=== PATIENT | female | born 1995 | race Caucasian/White ===

== ENCOUNTER → 2016-12-03 | Outpatient (CLI) | payer OTHER ==
[2016-12-03 13:42] LABS: BLOOD UREA NITROGEN 13 mg/dl (7-18); BUN/CREATININE RATIO 13.7 (10-20); CARBON DIOXIDE 27 mmol/L (21-32); CHLORIDE 104 mmol/L (98-107); CREATININE 0.91 mg/dl (0.60-1.20); GLUCOSE 77 mg/dl (70-99); POTASSIUM 3.8 mmol/L (3.5-5.1); SODIUM 141 mmol/L (136-145)
[2016-12-03 13:46] LABS: CALCIUM 9.4 mg/dl (8.5-10.1)
== END | disposition home or self-care (01) ==
LOC: C.LABBC 12:00
PROVIDERS: ATTEND Ophthalmology
DX: H53.432 Sector or arcuate defects, left eye (principal); Q14.0 Congenital malformation of vitreous humor

== ENCOUNTER → 2017-01-09 | Outpatient (CLI) | payer OTHER ==
[~2017-01-09] MED LIST: GADAVIST IV PRN
--- NOTE | 2017-01-09 10:24 | DIAGNOSTIC IMAGING REPORT ---
ORBIT COMBO CLINICAL HISTORY: H53.432 visual defect. Right-sided blindness. Stat left visual loss. COMPARISON STUDY: No previous studies for comparison. FINDINGS: Imaging was performed before and after the administration of 5.5 cc of intravenous Gadavist. There is partial opacification the sphenoid sinus. There is a small deformed right globe. No retroconal masses are visualized. No abnormalities of the optic chiasm are visualized. The pituitary and infundibulum appear normal as visualized. IMPRESSION: 1. Inflammatory changes within the sphenoid sinus 2. Small deformed right globe 3. No retroconal mass is identified Electronically signed by: Diogenes Muñiz M.D. 01/09/2017 10:22 AM Dictated Date/Time: 01/09/2017 10:15 AM
--- NOTE | 2017-01-09 10:35 | DIAGNOSTIC IMAGING REPORT ---
MRI OF THE BRAIN COMBO CLINICAL HISTORY: Left-sided vision loss. COMPARISON STUDY: No priors. TECHNIQUE: MRI of the brain was performed utilizing various T1 and T2-weighted sequences in the axial, sagittal, and coronal planes. Contrast-enhanced sequences were acquired following the administration of 5.5 cc of Gadavist. FINDINGS: Brain parenchyma: There are scattered punctate foci of T2 signal abnormality seen throughout the subcortical and periventricular white matter. The brain parenchyma is otherwise normal in appearance. There is no hemorrhage or mass effect. There is no restricted diffusion to suggest acute ischemia. No enhancing mass lesion is identified on the postcontrast images. Gutierrez-white matter differentiation is preserved. No extra-axial fluid collection is seen. The cerebellar tonsils are normal in configuration. Ventricles, sulci, and cisterns: Normal in configuration. Pituitary and sella: Unremarkable. Intracranial vasculature: Normal flow voids are maintained at the skull base. Orbits: The bony orbits are grossly intact. There is atrophy and deformity of the right globe that is likely chronic. The left orbital contents are normal as imaged. See report of MRI performed concurrently for detailed findings. Sinuses and mastoids: There is moderate mucosal thickening in the right sphenoid sinus. Remaining paranasal sinuses and the mastoid air cells are clear. Calvarium: Unremarkable. Cervical cord: Partially visualized cervical spinal cord is normal in morphology and signal intensity. IMPRESSION: 1. No acute intracranial abnormality. 2. There is atrophy and deformity of the right globe that is likely chronic. 3. There are scattered punctate foci of T2 signal abnormality noted throughout the subcortical and periventricular white matter. This is nonspecific, and could the seen in the setting of chronic migraine, could represent minimal microangiopathic change, the sequelae of a remote insult, less likely a demyelinating process such as multiple sclerosis versus an infectious process such Lyme disease. Clinical correlation will be essential. Electronically signed by: Yohannes Barba M.D. 01/09/2017 10:34 AM Dictated Date/Time: 01/09/2017 10:24 AM
== END | disposition home or self-care (01) ==
LOC: C.MRI 08:35
PROVIDERS: ATTEND Ophthalmology
DX: H53.432 Sector or arcuate defects, left eye (principal); Q14.0 Congenital malformation of vitreous humor; H44.521 Atrophy of globe, right eye; R90.82 White matter disease, unspecified; J01.30 Acute sphenoidal sinusitis, unspecified

== ENCOUNTER → 2017-05-16 | Outpatient (CLI) | payer OTHER ==
[2017-05-16 12:59] LABS: HEPATITIS B AB NEG
[2017-05-18 12:20] LABS: HBSAG REACTIVE (NON-REACTIVE)
[2017-05-18 17:37] LABS: HEP B QUANT 142 IU/mL (<20); HEP B QUANT LOG IU/ML 2.15 Log IU/mL (<1.30); HEPATITIS BE ANTIBODY TC 556 Reactive; HEPATITIS BE ANTIGEN TC 555 Nonreactive
== END | disposition home or self-care (01) ==
LOC: C.LAB1850 10:59
PROVIDERS: ATTEND Physician Assistant
DX: B18.1 Chronic viral hepatitis B without delta-agent (principal)

== ENCOUNTER 2024-07-16 14:58 | Inpatient (IN) ==
[2024-07-16] MEDS ORDERED: ACETAMINOPHEN 325 MG TAB PO PRN (15:19)
[2024-07-16] MEDS ORDERED: ACETAMINOPHEN 500 MG TAB PO PRN (15:51)
[2024-07-16] MEDS ORDERED: LIDOCAINE 1% LOCAL 20 ML VIAL INFIL PRN (15:51)
[2024-07-16 16:11] LABS: Creatinine Urine Random 100.6 mg/dl; Protein Creatinine Ratio Urine 0.2 (0-0.2); Total Protein Urine Random 16.1 mg/dl (0-11.9)
[2024-07-16] MEDS: LABETALOL HCL IV 5 MG/ML 20ML IV STA ×2 (16:14→22:58)
[2024-07-16] MEDS: MAGNESIUM SULFATE / WTR 40 GM/1,000 ML BAG IV SCH (16:26)
[2024-07-16 16:30] LABS: Hematocrit (blood only) 35.7 % (37.0-47.0); Hemoglobin 11.7 g/dl (12.0-16.0); Mean Corpuscular Hemoglobin 26.4 pg (25.0-34.0); Mean Corpuscular Hgb Conc 32.8 g/dL (32.0-36.0); Mean Corpuscular Volume 80.4 fL (80.0-100.0); Mean Platelet Volume 10.6 fL (9.4-12.4); Platelet Count 248 K/uL (130-400); RDW Coefficient of Variation 13.3 % (11.5-14.5); RDW Standard Deviation 38.7 fL (36.4-46.3); Red Blood Count 4.44 M/uL (4.20-5.40); White Blood Count 7.39 K/ul (4.8-10.8)
[2024-07-16 16:43] LABS: Creatinine Clr Calc Pharmacy 132.6 ml/min
[2024-07-16] MEDS: LIDOCAINE 2% JELLY 5 ML TUBE EXT ONE (16:48)
[2024-07-16] MEDS: MAG SULFATE 4GM BOLUS FROM BAG IV ONE (16:58)
[2024-07-16] MEDS ORDERED: Nursing to Pharmacy Communication SCH (17:15)
[2024-07-16] MEDS ORDERED: LABETALOL HCL 200 MG TAB PO SCH (18:55)
[2024-07-16] MEDS: NIFEdipine EXTENDED REL 30 MG TABCR PO STA ×2 (19:09→22:56)
[2024-07-16] MEDS: SODIUM CHLORIDE 0.9% 1,000 ML IV SCH (19:10)
--- NOTE | 2024-07-16 19:22 | History & Physical Report ---
Date of Service July 16, 2024 Assessment & Plan (1) Chronic hypertension during , antepartum: Plan: Sonja is a 29-year-old presents for evaluation of elevated blood pressures in clinic at the known history of chronic hypertension on medications. Was noted to be acutely hypertensive at time of admission and was treated with acute antihypertensive medications. Discussed diagnosis of chronic hypertension with superimposed preeclampsia and discussed recommendation for delivery. Due to the acute blood pressure elevation I recommended magnesium for seizure prophylaxis. 1. Fetus: Category 1 trace 2. Labor: Will start with oxytocin per regular protocol. Will plan for rupture of membranes when appropriate. 3. GBS negative 4. Chronic hypertension with superimposed preeclampsia. Blood pressures at time of admission had returned to mild range after treatment with acute antihypertensive medications. Will continue to monitor and add additional hypertensive medications as indicated (2) Maternal cardiomyopathy complicating : (3) Chronic hypertension with superimposed pre-eclampsia: Admission and Anticipated Discharge Date Admission Date: July 16, 2024 History of Present Illness Primary Care Provider: Valentina Clifton Sojna is a 29-year-old presents for evaluation of elevated blood pressures in clinic. Upon presentation she was noted to have multiple severe range blood pressures and was treated with acute antihypertensive medication. Blood pr essures rebounded to the acute hypertensive treatment. Discussed diagnosis of chronic hypertension with superimposed preeclampsia. Recommended induction of labor and discussed magnesium. Patient agreeable to staying for induction of labor as well as for magnesium for seizure prophylaxis. Has a known history of chronic hypertension on medications. Denies any preeclampsia symptoms. related complications: CHTN- on Metoprolol *Baby ASA daily start 12-28 wks, continue until delivery *wkly NST's @32wks and twice wkly @36 wks *Serial Growth US @ 24 (doppler only if abnml) *Baseline 24hr urine (additioinal PRN)----01/18 134.3 *weekly LEE's @ 32wk(If on Meds) *Deliver [id number] (If on Meds)--IOL 07/18 *Deliver [id number] (Not on Meds) Hep B: +/Carrier *LABS: Hep B Quant viral load--neg Hep B E-antigen--neg Hep B core antibody-IGM--neg Hep C RNA quant--neg Liver Panel--nl *Refer all pts to Hepatology/[facility] [place]- 05/01/24--seen and they are following labs monthly. MFM consult -rec lfts done q3mo and for 6 mo pp with hbv dna testing concurrently, as well as hbv dna at 26-28 wks to determine if antiviral therapy is indicated -rec anesthesia consult for prior discectomy 05/09/24 @ 1015am OB Labs: Blood Type O Positive 12/22/23 Antibody Screen NEGATIVE 12/22/23 Hgb 12.0 g/dl (12.0-16.0) 06/05/24 Hct 36.8 % (37.0-47.0) L 06/05/24 MCV 84.2 fL (80.0-100.0) 06/05/24 Plt Count 259 K/uL (130-400) 06/05/24 Rubella IgG Antibody Immune (Immune) 12/22/23 RPR Nonreactive (Nonreactive) 12/22/23 Treponema pallidum Ab Negative (Negative) 05/09/24 Hep Bs Antigen REACTIVE (NON-REACTIVE) A 05/16/17 Hep Bs Antigen REACTIVE (NON-REACTIVE) A 12/22/23 Hepatitis C Ab (EIA) NON-REACTIVE (NON-REACTIVE) 12/22/23 HIV (1&2) Ag & Ab Conf NON-REACTIVE (NON-REACTIVE) 12/22/23 Glucose 1 Hr 50 gm 116 mg/dl (70-130) 05/09/24 OB Optional Labs: Chlamydia trachomatis RNA Not Detected (NotDetected) 12/22/23 Neisseria gonorrhoeae RNA Not Detected (NotDetected) 12/22/23 Labs Reviewed: cfdna-low risk--mln gbs neg--akh Allergies Allergy/AdvReac Type Severity Reaction Status Date / Time acetaminophen Allergy Unknown Nausea Verified 07/16/24 13:51 shellfish derived Allergy Unknown Verified 07/16/24 13:51 Home Medications Medication Instructions Recorded Confirmed Type jbcmpdbb-uvs-Rl-FA 1 mg PO DAILY 08/30/23 07/16/24 History [] aspirin [Baby Aspirin] 81 mg PO DAILY 03/15/24 07/16/24 History metoprolol succinate 25 mg 50 mg PO DAILY 06/07/24 07/16/24 History tablet,extended release 24 hr Patient History Medical History (Updated 12/10/24 @ 19:20 by Kobi Solorio MD) Scoliosis Blindness of right eye Nonischemic cardiomyopathy 46% 10/2023; EF 60-65% 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 in [place] Palpitations resolved Anxiety Patellar tendonitis Chondromalacia of both patellae Hypertension Gestational hypertension Surgical History S/P lumbar discectomy H/O eye surgery right History of repair of ACL right History of shoulder surgery left H/O wisdom tooth extraction Family History Other Adopted Social History (Updated 12/15/23 @ 09:13 by Tami Rivero, FRANNY) Smoking Status: Never smoker Do You Dip or Chew Tobacco: No; Hx Alcohol Use: No Hx Substance Use: No Preferred Language: Citizen Of [place] Communication Ability: Effective Cryptologic Technician Operator/Analyst Required: No Beliefs That Will Affect Care: None marital status: marital status details: Akash Menjivar (29) [phone] Current Living Situation: Spouse Current Living Situation Comment: Lives with and daughter, 1 dog current occupational status: employed current occupation: [employer] How many Children do You have: 1 Other Information That Helps Us Care for You: No Feels Safe at Home: Yes Safety Concerns: Feels Safe At This Time Physical Exam Genitourinary: Manual OB Exam: + cervical dilation 2 cm, + cervical effacement 60% and + station -2 OB Exam Monitor Tracing: + external FHT monitor used, + external uterine monitor used, + category I and + normal FHT variability Results & Data Vital Signs (Past 12 Hours) Vital Signs Temp Pulse Resp BP Pulse Ox 07/16/24 19:12 89 160/101 H 07/16/24 19:10 88 98 07/16/24 19:07 83 153/99 H 07/16/24 19:05 87 99 07/16/24 19:02 88 156/101 H 07/16/24 19:00 83 99 07/16/24 18:57 83 158/103 H 07/16/24 18:55 84 98 07/16/24 18:52 82 160/109 H 07/16/24 18:50 87 97 07/16/24 18:47 81 180/106 H 07/16/24 18:45 91 H 99 07/16/24 18:40 91 H 99 07/16/24 18:38 90 153/99 H 07/16/24 18:35 85 100 07/16/24 18:34 89 150/97 H 07/16/24 18:30 87 20 99 07/16/24 18:27 85 144/93 H 07/16/24 18:25 86 98 07/16/24 18:23 84 144/93 H 07/16/24 18:20 96 H 97 07/16/24 18:17 78 157/103 H 07/16/24 18:15 82 98 07/16/24 18:12 88 167/106 H 07/16/24 18:10 84 98 07/16/24 18:06 84 155/105 H 07/16/24 18:05 88 161/104 H 96 07/16/24 18:00 18 07/16/24 18:00 87 98 07/16/24 17:55 85 97 07/16/24 17:50 84 156/99 H 98 07/16/24 17:45 85 98 07/16/24 17:40 86 99 07/16/24 17:35 98 07/16/24 17:35 84 07/16/24 17:35 88 147/88 H 07/16/24 17:30 90 97 07/16/24 17:25 89 99 07/16/24 17:20 97 07/16/24 17:20 86 07/16/24 17:20 85 147/90 H 07/16/24 17:15 84 96 07/16/24 17:10 86 97 07/16/24 17:08 86 94 07/16/24 17:05 98 07/16/24 17:05 88 07/16/24 17:05 85 142/89 H 07/16/24 17:00 18 07/16/24 17:00 83 18 96 07/16/24 16:59 86 140/87 07/16/24 16:55 86 96 07/16/24 16:50 88 95 07/16/24 16:49 90 140/87 07/16/24 16:45 86 162/95 H 07/16/24 16:39 86 151/92 H 07/16/24 16:35 85 150/89 H 07/16/24 16:34 90 146/89 H 07/16/24 16:29 90 142/85 H 07/16/24 16:28 87 144/89 H 07/16/24 16:24 96 H 142/91 H 07/16/24 16:19 90 07/16/24 16:19 140/86 07/16/24 16:19 98 H 139/91 07/16/24 16:14 89 160/98 H 07/16/24 16:14 89 160/98 H 07/16/24 16:00 20 07/16/24 16:00 20 07/16/24 15:54 97 H 139/104 H 07/16/24 15:39 92 H 175/92 H 07/16/24 15:22 83 160/107 H 07/16/24 15:15 36.9 C 20 07/16/24 15:14 93 H 162/108 H Coding Level of Care Code None Diagnoses Chronic hypertension during , antepartum O10.919 Maternal cardiomyopathy complicating in third trimester O99.413; I42.9 Trimester: third trimester Chronic hypertension with superimposed pre-eclampsia O11.9 (2) Maternal cardiomyopathy complicating Trimester: third trimester Qualified Code(s): O99.413 - Diseases of the circulatory system complicating , third trimester; I42.9 - Cardiomyopathy, unspecified
[2024-07-16] MEDS: OXYTOCIN 30 UNITS/NSS 30 UNITS/500 ML BAG IV PRN (19:48)
[2024-07-16] MEDS ORDERED: NIFEdipine 10 MG CAP PO STA (22:49)
--- NOTE | 2024-07-16 22:59 | Labor Progress Brief Note ---
Date of Service July 16, 2024 Subjective Reason For Note: Routine Evaluation Assessment & Plan (1) Chronic hypertension during , antepartum: Plan: Sonja is a 29-year-old presents for evaluation of elevated blood pressures in clinic at the known history of chronic hypertension on medications. Was noted to be acutely hypertensive at time of admission and was treated with acute antihypertensive medications. Discussed diagnosis of chronic hypertension with superimposed preeclampsia and discussed recommendation for delivery. Due to the acute blood pressure elevation I recommended magnesium for seizure prophylaxis. 1. Fetus: Category 1 trace 2. Labor: Continue oxytocin per protocol. AROM for clear. 3. GBS negative 4. Chronic hypertension with superimposed preeclampsia. Blood pressures at time of admission had returned to mild range after treatment with acute antihypertensive medications. Will continue to monitor and add additional hypertensive medications as indicated. Started Procardia XL 30 mg. Patient hypertensive again and will give another 20 mg of IV labetalol and increase dosing of Procardia XL to 60 mg daily with an additional 30 mg given now. Continues to deny preeclampsia symptoms (2) Maternal cardiomyopathy complicating : Trimester: third trimester Qualified Code(s): O99.413 - Diseases of the circulatory system complicating , third trimester; I42.9 - Cardiomyopathy, unspecified (3) Chronic hypertension with superimposed pre-eclampsia: Admission and Anticipated Discharge Date Admission Date: July 16, 2024 Physical Exam Genitourinary: Manual OB Exam: + cervical dilation 3 cm, + cervical effacement 70%, + station -2 and + amniotic fluid clear OB Exam Monitor Tracing: + external FHT monitor used, + external uterine monitor used, + category I and + normal FHT variability Results & Data Vital Signs (Past 12 Hours) Vital Signs Temp Pulse Resp BP Pulse Ox O2 Del Method 07/16/24 22:55 98 H 97 07/16/24 22:50 93 H 97 07/16/24 22:48 95 H 181/113 H 07/16/24 22:45 95 H 98 07/16/24 22:40 98 H 98 07/16/24 22:35 97 H 98 07/16/24 22:30 93 H 97 07/16/24 22:27 92 H 175/111 H 07/16/24 22:25 96 H 98 07/16/24 22:20 94 H 98 07/16/24 22:15 95 H 99 07/16/24 22:10 97 H 99 07/16/24 22:05 92 H 99 07/16/24 22:00 90 18 99 07/16/24 21:55 95 H 97 07/16/24 21:50 88 99 07/16/24 21:45 97 H 98 07/16/24 21:42 90 158/108 H 07/16/24 21:40 92 H 99 07/16/24 21:35 90 98 07/16/24 21:30 91 H 98 07/16/24 21:25 89 97 07/16/24 21:20 94 H 97 07/16/24 21:15 92 H 97 07/16/24 21:10 94 H 98 07/16/24 21:05 90 97 07/16/24 21:00 18 07/16/24 21:00 95 H 96 07/16/24 20:58 85 156/99 H 07/16/24 20:55 95 H 98 07/16/24 20:50 95 H 98 07/16/24 20:45 88 98 07/16/24 20:40 90 98 07/16/24 20:35 90 97 07/16/24 20:30 36.7 C 90 98 07/16/24 20:25 96 H 97 07/16/24 20:20 93 H 97 07/16/24 20:15 88 98 07/16/24 20:10 94 H 97 07/16/24 20:05 98 H 96 07/16/24 20:04 90 158/101 H 07/16/24 20:00 36.7 C 88 16 99 07/16/24 19:55 93 H 96 07/16/24 19:53 90 160/105 H 07/16/24 19:50 85 99 07/16/24 19:45 88 98 07/16/24 19:43 98 H 148/101 H 07/16/24 19:40 93 H 98 07/16/24 19:35 98 07/16/24 19:35 86 07/16/24 19:35 84 155/97 H 07/16/24 19:30 87 98 07/16/24 19:25 93 H 99 07/16/24 19:23 82 153/105 H 07/16/24 19:20 93 H 98 07/16/24 19:15 18 07/16/24 19:15 36.7 C 18 98 Room Air 07/16/24 19:15 84 99 07/16/24 19:12 89 160/101 H 07/16/24 19:10 88 98 07/16/24 19:07 83 153/99 H 07/16/24 19:05 87 99 07/16/24 19:02 88 156/101 H 07/16/24 19:00 83 99 07/16/24 18:57 83 158/103 H 07/16/24 18:55 84 98 07/16/24 18:52 82 160/109 H 07/16/24 18:50 87 97 07/16/24 18:47 81 180/106 H 07/16/24 18:45 91 H 99 07/16/24 18:40 91 H 99 07/16/24 18:38 90 153/99 H 07/16/24 18:35 85 100 07/16/24 18:34 89 150/97 H 07/16/24 18:30 87 20 99 07/16/24 18:27 85 144/93 H 07/16/24 18:25 86 98 07/16/24 18:23 84 144/93 H 07/16/24 18:20 96 H 97 07/16/24 18:17 78 157/103 H 07/16/24 18:15 82 98 07/16/24 18:12 88 167/106 H 07/16/24 18:10 84 98 07/16/24 18:06 84 155/105 H 07/16/24 18:05 88 161/104 H 96 07/16/24 18:00 18 07/16/24 18:00 87 98 07/16/24 17:55 85 97 07/16/24 17:50 84 156/99 H 98 07/16/24 17:45 85 98 07/16/24 17:40 86 99 07/16/24 17:35 98 07/16/24 17:35 84 07/16/24 17:35 88 147/88 H 07/16/24 17:30 90 97 07/16/24 17:25 89 99 07/16/24 17:20 97 07/16/24 17:20 86 07/16/24 17:20 85 147/90 H 07/16/24 17:15 84 96 07/16/24 17:10 86 97 07/16/24 17:08 86 94 07/16/24 17:05 98 07/16/24 17:05 88 07/16/24 17:05 85 142/89 H 07/16/24 17:00 18 07/16/24 17:00 83 18 96 07/16/24 16:59 86 140/87 07/16/24 16:55 86 96 07/16/24 16:50 88 95 07/16/24 16:49 90 140/87 07/16/24 16:45 86 162/95 H 07/16/24 16:39 86 151/92 H 07/16/24 16:35 85 150/89 H 07/16/24 16:34 90 146/89 H 07/16/24 16:29 90 142/85 H 07/16/24 16:28 87 144/89 H 07/16/24 16:24 96 H 142/91 H 07/16/24 16:19 90 07/16/24 16:19 140/86 07/16/24 16:19 98 H 139/91 07/16/24 16:14 89 160/98 H 07/16/24 16:14 89 160/98 H 07/16/24 16:00 20 07/16/24 16:00 20 07/16/24 15:54 97 H 139/104 H 07/16/24 15:39 92 H 175/92 H 07/16/24 15:22 83 160/107 H 07/16/24 15:15 36.9 C 20 07/16/24 15:14 93 H 162/108 H Coding Level of Care Code None Diagnoses Chronic hypertension during , antepartum O10.919 Maternal cardiomyopathy complicating in third trimester O99.413; I42.9 Trimester: third trimester Chronic hypertension with superimposed pre-eclampsia O11.9
[2024-07-16] MEDS ORDERED: ePHEDrine sulfate 50 MG/ML AMP IV PRN (23:16)
[2024-07-16] MEDS ORDERED: SODIUM CHLORIDE 0.9% PF INJ 10 ML VIAL EPI PRN (23:16)
[2024-07-16] MEDS ORDERED: NALOXONE HCL 1 MG in SODIUM CHLORIDE 0.9% 1,000 ML IV PRN (23:16)
[2024-07-16] MEDS ORDERED: ROPIVACAINE 0.5% PF 5 MG/ML 20 ML VIAL EPI PRN (23:16)
[2024-07-16] MEDS ORDERED: diphenhydrAMINE 50 MG/ML VIAL IV PRN (23:16)
[2024-07-16] MEDS ORDERED: LIDOCAINE 2% MPF LOCAL 5 ML VIAL EPI PRN (23:16)
[2024-07-16] MEDS ORDERED: NALBUPHINE HCL INJ 10 MG/ML AMP IV PRN (23:16)
[2024-07-16] MEDS ORDERED: fentaNYL citrate PF 100 MCG/2 ML VIAL EPI PRN (23:16)
[2024-07-16] MEDS ORDERED: BUPIVACAINE 0.25% PF 30 ML VIAL EPI PRN (23:16)
[2024-07-16] MEDS ORDERED: NALOXONE HCL 0.4 MG/1 ML VIAL/CARP IV PRN (23:16)
--- NOTE | 2024-07-16 23:16 | Anesthesiology Consultation ---
Date of Service July 16, 2024 Assessment & Plan Chart Review Chart Review: Acceptable Risk for Labor Epidural Consults Requested none History Height/Weight Height: 5 ft 7 in Weight: 82.1 kg Allergies Allergy/AdvReac Type Severity Reaction Status Date / Time acetaminophen Allergy Unknown Nausea Verified 07/16/24 13:51 shellfish derived Allergy Unknown Verified 07/16/24 13:51 Medications Home Medications Medication Instructions Recorded Confirmed Last Taken ehfpjiej-fib-Uf-FA 1 mg PO DAILY 08/30/23 07/16/24 07/15/24 [] aspirin [Baby Aspirin] 81 mg PO DAILY 03/15/24 07/16/24 07/15/24 metoprolol succinate 25 mg 50 mg PO DAILY 06/07/24 07/16/24 07/16/24 tablet,extended release 24 hr Active Medications Generic Name Dose Route Start Last Admin Trade Name Freq PRN Reason Stop Dose Admin Magnesium Sulfate 40 gm in 1,000 mls @ 50 mls/hr 07/16/24 16:00 07/16/24 19:05 Magnesium Sulfate / Wtr IV 08/15/24 15:59 50 mls/hr .Q20H ALBERTO Infusion Sodium Chloride 1,000 mls @ 50 mls/hr 07/16/24 19:00 07/16/24 19:10 Nss IV 07/17/24 18:59 50 mls/hr .Q20H ALBERTO Administration Oxytocin 30 units in 500 mls @ 10 mls/hr 07/16/24 19:13 07/16/24 22:30 Pitocin 30 Units/Nss IV 07/18/24 19:12 0.6 units/hr .Q24H PRN 10 mls/hr Labor Induction/Augmentation Titration Protocol 0.6 UNITS/HR Past Medical History Medical History (Updated 07/16/24 @ 19:20 by Kobi Solorio MD) Scoliosis Blindness of right eye Nonischemic cardiomyopathy 46% 10/2023; EF 60-65% 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 in [place] Palpitations resolved Anxiety Patellar tendonitis Chondromalacia of both patellae Hypertension Gestational hypertension Past Family History Family History Other Adopted Past Surgical History Surgical History S/P lumbar discectomy H/O eye surgery right History of repair of ACL right History of shoulder surgery left H/O wisdom tooth extraction Social History Smoking Status: Never smoker Do You Dip or Chew Tobacco: No Hx Alcohol Use: No Hx Substance Use: No substance use type: does not use Physical Exam Vital Signs Last Vital Signs Temp 36.7 C 07/16/24 20:30 Pulse 88 07/16/24 23:12 Resp 18 07/16/24 22:00 BP 149/99 H 07/16/24 23:12 Pulse Ox 96 07/16/24 23:10 O2 Del Method Room Air 07/16/24 19:15 Testing Laboratory Results 07/16/24 16:10 07/16/24 16:10 Blood Type O Positive 07/16/24 16:10 Antibody Screen NEGATIVE 07/16/24 16:10
[2024-07-16] MEDS: LIDOCAINE 2%/EPINEPHRINE 1:200,000 20 ML PF EPI STA (23:59)
[2024-07-17] MEDS: fentANYL 2 MCG/ML BUPIVacaine 0.125%-NSS 100ML BAG ONE
[2024-07-17] MEDS: CALCIUM CARBONATE 500 MG CHEWABLE TAB PO PRN (01:00)
[2024-07-17] MEDS: BUPIVACAINE 0.25% PF 30 ML VIAL EPI STA (01:34)
[2024-07-17] MEDS: BUPIVACAINE 0.25% PF 30 ML VIAL ONE (01:35)
[2024-07-17] MEDS: ePHEDrine sulfate 50 MG/ML AMP ONE (01:35)
[2024-07-17] MEDS: fentaNYL citrate PF 100 MCG/2 ML VIAL EPI STA (01:35)
[2024-07-17] MEDS: SODIUM CHLORIDE 0.9% PF INJ 10 ML VIAL EPI STA (01:35)
[2024-07-17] MEDS: LIDOCAINE 2%/EPINEPHRINE 1:200,000 20 ML PF ONE (01:36)
[2024-07-17] MEDS: fentaNYL citrate PF 100 MCG/2 ML VIAL ONE (01:36)
[2024-07-17] MEDS: SODIUM CHLORIDE 0.9% PF INJ 10 ML VIAL ONE (01:36)
[2024-07-17] MEDS ORDERED: NURSING L&D Epidural Breakthrough Pain Update ONE (06:24)
[2024-07-17] MEDS: fentANYL 2 MCG/ML BUPIVacaine 0.125%-NSS 100ML BAG EPI PRN (06:27)
[2024-07-17] MEDS: OXYTOCIN 30 UNITS/NSS 30 UNITS/500 ML BAG IV PRN (07:00)
[2024-07-17] MEDS ORDERED: bisacodyL 10 MG SUPP PR PRN (07:24)
[2024-07-17] MEDS ORDERED: OXYTOCIN 30 UNITS/NSS 30 UNITS/500 ML BAG IV PRN (07:24)
[2024-07-17] MEDS ORDERED: ACETAMINOPHEN 325 MG TAB PO PRN (07:24)
[2024-07-17] MEDS ORDERED: IBUPROFEN 600 MG TAB PO PRN (07:24)
[2024-07-17] MEDS ORDERED: HYDROCORTISONE ACETATE 25 MG SUPP PR PRN (07:24)
--- NOTE | 2024-07-17 07:29 | Delivery Summary ---
Vaginal Delivery Summary Date of Service July 17, 2024 Vaginal Delivery Summary and 2nd Degree LAC Progressed to 10 cm dilated 100% effaced +3 station pushed over intact perineum with epidural anesthesia and delivered a viable with weight and Apgars pending. Had the delivered without difficulty. A single loose nuchal was noted which was easily reduced. Shoulders and body quickly followed was noted be vigorous soon after delivery. A 1 minute delayed cord clamping was initiated after which the cord was double clamped and cut. remained on maternal abdomen. Cord blood obtained and attention was turned deliver the placenta was delivered intact three-vessel cord with gentle cord traction. Inspection of perineum vagina cervix was noted to be a small second-degree perineal laceration which was repaired with the traditional crown stitch using 3-0 Vicryl. Needle sponge and instrument counts were correct at the place of the case. Both mother and stable immediate post delivery timeframe. Blood loss per QBL and no complications noted. Will continue on magnesium MNPG Vaginal Delivery Charge Delivery Type Details: and 2nd Degree LAC
[2024-07-17] MEDS: DIPHTHER/TETAN/PERTUS Vaccine (Tdap, Adol/Adult) 0.5mL IM ONE (07:44)
[2024-07-17] MEDS ORDERED: Nursing to Pharmacy Communication SCH (08:00)
--- NOTE | 2024-07-17 09:04 | Anesthesia Procedure Note ---
Date of Service July 17, 2024 Anesthesia Post Epidural Note Vital Signs Vital Signs: Temp Pulse Resp BP Pulse Ox O2 Del Method 36.5 C 102 H 18 125/87 99 Room Air 07/17/24 07:00 07/17/24 09:00 07/17/24 08:45 07/17/24 09:00 07/17/24 08:59 07/16/24 19:15 Pain Intensity Bilateral Lower Abdomen: Pain Intensity: 0 Notes Mental Status: alert / awake / arousable and participated in evaluation Nausea / Vomiting: adequately controlled Pain: adequately controlled Airway Patency, RR, SpO2: stable & adequate BP & HR: stable & adequate Hydration State: stable & adequate Neuraxial Anesthesia: was administered and sensory block is resolving Anesthetic Complications: no major complications apparent Epidural: Removed without complications and With tip intact
[2024-07-17] MEDS: PRENATAL VITAMIN 1 TAB PO SCH (10:05)
[2024-07-17] MEDS: BENZOCAINE 20% SPRY 85 APPLN/85 GM CAN EXT PRN (10:06)
[2024-07-17] MEDS: DOCUSATE SODIUM 100 MG CAP PO SCH (10:06)
[2024-07-17] MEDS: FERROUS SULFATE 325 MG TAB PO SCH (10:09)
[2024-07-18 06:15] LABS: Hematocrit (blood only) 31.7 % (37.0-47.0); Hemoglobin 10.5 g/dl (12.0-16.0); Mean Corpuscular Hemoglobin 26.5 pg (25.0-34.0); Mean Corpuscular Hgb Conc 33.1 g/dL (32.0-36.0); Mean Corpuscular Volume 80.1 fL (80.0-100.0); Mean Platelet Volume 10.4 fL (9.4-12.4); Platelet Count 254 K/uL (130-400); RDW Coefficient of Variation 13.6 % (11.5-14.5); RDW Standard Deviation 39.7 fL (36.4-46.3); Red Blood Count 3.96 M/uL (4.20-5.40); White Blood Count 9.03 K/ul (4.8-10.8)
--- NOTE | 2024-07-18 06:16 | Obstetrical Progress Note ---
Date of Service July 18, 2024 Assessment & Plan (1) Chronic hypertension with superimposed pre-eclampsia: Plan Plan to turn off mag at 645 and transfer to floor. BPs have been ok but am going to start metoprolol as will likely need, pulse can tolerate. Routine pp care. Subjective Ambulation: limited ambulation Voiding: cuba catheter in place Passing Gas:: Yes Diet Tolerance:: clear liquids Lochia:: Small Patient currently finishing 24 hours of mag. Doing well. no s/s of pet. Physical Exam Constitutional WD/WN, vitals as above Cardiovascular Extremities: + edema (tr); no calf tenderness Gastrointestinal (Abdomen) ff/nt 2 below u Neurologic patellar DTR's 2+ bilat, sensation intact Psychiatric A+Ox3, euthymic affect Results & Data Vital Signs (Past 12 Hours) Vital Signs Temp Pulse Resp BP Pulse Ox 07/18/24 06:08 84 98 07/18/24 06:05 18 07/18/24 06:05 82 18 131/92 07/18/24 06:03 87 98 07/18/24 05:58 79 98 07/18/24 05:53 79 98 07/18/24 05:48 77 97 07/18/24 05:43 78 97 07/18/24 05:38 79 97 07/18/24 05:33 80 97 07/18/24 05:28 81 97 07/18/24 05:23 84 97 07/18/24 05:18 79 98 07/18/24 05:13 85 96 07/18/24 05:08 77 97 07/18/24 05:05 76 18 129/83 07/18/24 05:03 77 97 07/18/24 04:58 79 97 07/18/24 04:53 81 97 07/18/24 04:48 81 97 07/18/24 04:43 80 98 07/18/24 04:38 81 97 07/18/24 04:33 80 97 07/18/24 04:28 84 97 07/18/24 04:23 86 98 07/18/24 04:18 81 98 07/18/24 04:13 82 97 07/18/24 04:08 77 99 07/18/24 04:05 81 139/89 07/18/24 04:03 85 99 07/18/24 03:58 90 97 07/18/24 03:53 84 98 07/18/24 03:48 82 98 07/18/24 03:43 92 H 98 07/18/24 03:38 78 98 07/18/24 03:33 80 98 07/18/24 03:28 82 98 07/18/24 03:23 77 97 07/18/24 03:18 78 98 07/18/24 03:13 80 98 07/18/24 03:08 82 97 07/18/24 03:05 18 07/18/24 03:05 36.8 C 85 18 126/79 07/18/24 03:03 81 97 07/18/24 02:58 78 97 07/18/24 02:53 77 97 07/18/24 02:48 80 96 07/18/24 02:43 79 97 07/18/24 02:38 80 97 07/18/24 02:33 78 97 07/18/24 02:28 82 97 07/18/24 02:23 79 97 07/18/24 02:18 81 97 07/18/24 02:13 82 97 07/18/24 02:08 83 98 07/18/24 02:05 82 18 132/86 07/18/24 02:03 86 98 07/18/24 01:58 87 98 07/18/24 01:53 82 98 07/18/24 01:48 82 98 07/18/24 01:43 85 98 07/18/24 01:38 85 98 07/18/24 01:33 86 98 07/18/24 01:28 90 98 07/18/24 01:23 88 98 07/18/24 01:18 87 98 07/18/24 01:13 88 98 07/18/24 01:08 90 98 07/18/24 01:05 18 07/18/24 01:05 85 18 122/70 07/18/24 01:03 83 96 24 00:58 83 96 24 00:53 83 96 24 00:48 83 97 24 00:43 83 98 24 00:38 88 97 24 00:33 88 98 07/18/24 00:28 86 97 07/18/24 00:23 91 H 97 07/18/24 00:18 87 97 07/18/24 00:13 87 97 07/18/24 00:08 85 97 07/18/24 00:05 92 H 18 124/76 07/18/24 00:03 86 97 07/17/24 23:58 97 07/17/24 23:58 94 H 07/17/24 23:53 97 07/17/24 23:53 90 07/17/24 23:48 97 07/17/24 23:48 87 07/17/24 23:43 97 07/17/24 23:43 87 07/17/24 23:38 95 07/17/24 23:38 89 07/17/24 23:33 96 07/17/24 23:33 84 07/17/24 23:28 96 07/17/24 23:28 84 07/17/24 23:23 95 07/17/24 23:23 84 07/17/24 23:18 96 07/17/24 23:18 86 07/17/24 23:13 97 07/17/24 23:13 86 07/17/24 23:08 97 07/17/24 23:08 91 H 07/17/24 23:05 18 07/17/24 23:05 18 07/17/24 23:05 36.8 C 18 07/17/24 23:05 91 H 07/17/24 23:05 135/86 07/17/24 23:03 98 07/17/24 23:03 91 H 07/17/24 22:58 97 07/17/24 22:58 90 07/17/24 22:53 97 07/17/24 22:53 93 H 07/17/24 22:48 97 07/17/24 22:48 91 H 07/17/24 22:43 96 07/17/24 22:43 101 H 07/17/24 22:38 97 07/17/24 22:38 97 H 07/17/24 22:33 98 07/17/24 22:33 98 H 07/17/24 22:28 97 07/17/24 22:28 99 H 07/17/24 22:23 98 07/17/24 22:23 96 H 07/17/24 22:18 98 07/17/24 22:18 96 H 07/17/24 22:13 97 07/17/24 22:13 96 H 07/17/24 22:08 97 07/17/24 22:08 93 H 07/17/24 22:05 18 07/17/24 22:05 18 07/17/24 22:05 99 H 07/17/24 22:05 141/94 H 07/17/24 22:03 94 07/17/24 22:03 105 H 07/17/24 21:58 95 07/17/24 21:58 95 H 07/17/24 21:53 96 07/17/24 21:53 97 H 07/17/24 21:48 95 07/17/24 21:48 97 H 07/17/24 21:43 96 07/17/24 21:43 96 H 07/17/24 21:38 96 07/17/24 21:38 96 H 07/17/24 21:33 96 07/17/24 21:33 94 H 07/17/24 21:28 96 07/17/24 21:28 96 H 07/17/24 21:23 97 07/17/24 21:23 97 H 07/17/24 21:18 97 07/17/24 21:18 93 H 07/17/24 21:13 98 07/17/24 21:13 92 H 07/17/24 21:08 98 07/17/24 21:08 95 H 07/17/24 21:05 18 07/17/24 21:05 18 07/17/24 21:05 95 H 07/17/24 21:05 152/94 H 07/17/24 21:03 98 07/17/24 21:03 98 H 07/17/24 20:58 98 07/17/24 20:58 100 H 07/17/24 20:53 99 07/17/24 20:53 101 H 07/17/24 20:48 98 07/17/24 20:48 101 H 07/17/24 20:43 98 07/17/24 20:43 94 H 07/17/24 20:38 98 07/17/24 20:38 97 H 07/17/24 20:33 97 07/17/24 20:33 100 H 07/17/24 20:28 98 07/17/24 20:28 97 H 07/17/24 20:23 99 07/17/24 20:23 96 H 07/17/24 20:18 99 07/17/24 20:18 92 H 07/17/24 20:13 99 07/17/24 20:13 95 H 07/17/24 20:08 98 07/17/24 20:08 101 H 07/17/24 20:05 18 07/17/24 20:05 18 07/17/24 20:05 92 H 07/17/24 20:05 150/89 H 07/17/24 20:03 99 07/17/24 20:03 96 H 07/17/24 19:58 98 07/17/24 19:58 94 H 07/17/24 19:53 98 07/17/24 19:53 97 H 07/17/24 19:48 98 07/17/24 19:48 99 H 07/17/24 19:43 98 07/17/24 19:43 95 H 07/17/24 19:38 98 07/17/24 19:38 94 H 07/17/24 19:33 99 07/17/24 19:33 96 H 07/17/24 19:28 98 07/17/24 19:28 93 H 07/17/24 19:23 98 07/17/24 19:23 97 H 07/17/24 19:18 98 07/17/24 19:18 99 H 07/17/24 19:13 99 07/17/24 19:13 96 H 07/17/24 19:08 99 07/17/24 19:08 96 H 07/17/24 19:05 18 07/17/24 19:05 18 07/17/24 19:05 18 07/17/24 19:05 93 H 07/17/24 19:05 143/89 H 07/17/24 19:03 98 07/17/24 19:03 99 H 07/17/24 18:58 99 07/17/24 18:58 98 H 07/17/24 18:53 99 07/17/24 18:53 97 H 07/17/24 18:48 98 07/17/24 18:48 98 H 07/17/24 18:43 98 07/17/24 18:43 100 H 07/17/24 18:38 99 07/17/24 18:38 98 H 12/11/24 18:33 99 07/17/24 18:33 96 H 07/17/24 18:28 98 07/17/24 18:28 96 H 07/17/24 18:23 99 07/17/24 18:23 99 H 07/17/24 18:18 98 07/17/24 18:18 98 H
[2024-07-18] MEDS: METOPROLOL SUCC 50MG EXT REL TAB PO SCH (08:25)
[2024-07-18 10:19] VITALS: TEMP 97.9
[2024-07-18] MEDS ORDERED: bisacodyL 5 MG TABEC PO SCH (20:00)
--- NOTE | 2024-07-19 06:54 | Obstetrical Progress Note ---
Date of Service July 19, 2024 Assessment & Plan (1) Chronic hypertension with superimposed pre-eclampsia: Patient doing well. Minimal bleeding, no extremity pain she has no calf tenderness she is tolerating a regular diet she is voiding well she has no depression Instructions are reviewed and when to call she is advised to call the office for a follow-up appointment and sooner if she is having a problem metoprolol Subjective Ambulation: ambulating normally Voiding: no voiding problems Passing Gas:: Yes Diet Tolerance:: regular diet Physical Exam Constitutional WD/WN, vitals as above well developed and well nourished Respiratory normal respiratory effort, lungs clear to auscultation normal respiratory effort Cardiovascular RRR, no murmur, no edema Gastrointestinal (Abdomen) normal bowel sounds, soft, nontender, no hepatosplenomegaly Results & Data Vital Signs (Past 12 Hours) Vital Signs Temp Pulse Resp BP Pulse Ox O2 Del Method 07/18/24 23:41 97.9 F 79 16 135/83 99 Room Air 07/18/24 19:10 97.9 F 87 16 137/87 98 Room Air
[2024-07-19 08:23] VITALS: PULSE 78; RESP 18; O2SAT 97
[2024-07-19 08:35] VITALS: BP 137/92
== END 2024-07-19 10:15 | disposition home or self-care (01) | DRG 806 ==
LOC: OPB 14:58 → 4S1 15:00 → 4E2 07-18 09:30
DX: O99.413 Diseases of the circulatory system complicating pregnancy, third trimester; B19.10 Unspecified viral hepatitis B without hepatic coma; I42.9 Cardiomyopathy, unspecified; Z3A.37 37 weeks gestation of pregnancy; Z37.0 Single live birth; O69.81X0 Labor and delivery complicated by cord around neck, without compression, not applicable or unspecified; O98.42 Viral hepatitis complicating childbirth; O70.1 Second degree perineal laceration during delivery; O11.4 Pre-existing hypertension with pre-eclampsia, complicating childbirth